=== PATIENT | female | born 1990 | race Caucasian/White ===

== ENCOUNTER 2016-07-18 14:20 | Emergency (ER) | payer BC, OTHER ==
[2016-07-18 15:03] VITALS: BP 110/66
--- NOTE | 2016-07-18 15:26 | UC ---
Respiratory Complaint HPI - HPI Summary HPI Summary: "Cough, my chest hurts. I'm achy." Headache, "brown" nasal discharge, PND, sore throat, "brown" productive cough, "my lungs ... chest hurts", nausea without vomiting, diarrhea, and myalgias for four days; worsened today. She states cough worse now than a few days ago. SHe does smoke but not today due to cough [ End ] - History of Current Complaint Chief Complaint: UCRespiratory Stated Complaint: COUGH,SORE THROAT Time Seen by Provider: 07/18/16 15:19 Hx Obtained From: Patient Hx Last Menstrual Period: 07/05/16 ?: No Onset/Duration: Gradual Onset Timing: Constant Severity Initially: Mild Severity Currently: Moderate Character: Cough: Productive Associated Signs And Symptoms: Positive: Wheezing, URI, Nasal Congestion, Hoarseness, Sinus Discomfort - Risk Factors Pulmonary Embolism Risk Factors: Negative Cardiac Risk Factors: Negative Pseudomonas Risk Factors: Negative Tuberculosis Risk Factors: Negative - Allergies/Home Medications Allergies/Adverse Reactions: Allergies Allergy/AdvReac Type Severity Reaction Status Date / Time Morphine Allergy Severe hallucinati Verified 07/18/16 14:59 ons Penicillins Allergy Intermediate rash Verified 07/18/16 14:59 Sulfamethoxazole Allergy Intermediate rash Verified 07/18/16 14:59 w/Trimethoprim [From Bactrim] Amoxicillin AdvReac See Comment Verified 07/18/16 14:59 PMH/Surg Hx/FS Hx/Imm Hx Previously Healthy: Yes Endocrine History Of: Denies: Diabetes, Thyroid Disease Cardiovascular History Of: Denies: Cardiac Disorders, Hypertension Respiratory History Of: Denies: COPD, Asthma GI/ History Of: Denies: Ulcer Cancer History Of: Denies: Lung Cancer - Surgical History Surgical History: Yes Surgery Procedure, Year, and Place: 2007 Appendectomy. 1997 T&A - Family History Known Family History: Positive: None - Social History Occupation: Employed Full-time Lives: Alone Alcohol Use: Rare Substance Use Type: None Smoking Status (MU): Former Smoker Type: Cigarettes Amount Used/How Often: 1/3 PPD Length of Time of Smoking/Using Tobacco: 4 years Have You Smoked in the Last Year: Yes When Did the Patient Quit Smoking/Using Tobacco: 07/17/16 Household Exposure Type: Cigarettes Cessation Counseling: Patient Advised to Stop Review of Systems Constitutional: Fatigue Skin: Negative Eyes: Negative ENT: Sore Throat, Ear Ache, Nasal Discharge Respiratory: Cough Cardiovascular: Negative Gastrointestinal: Negative Genitourinary: Negative Motor: Negative Neurovascular: Negative Musculoskeletal: Negative Neurological: Negative Psychological: Negative All Other Systems Reviewed And Are Negative: Yes Physical Exam Triage Information Reviewed: Yes Appearance: Well-Appearing, No Pain Distress, Well-Nourished Vital Signs: Initial Vital Signs Temp 98 F 07/18/16 14:57 Pulse 78 07/18/16 14:57 Resp 16 07/18/16 14:57 BP 110/66 07/18/16 14:57 Pulse Ox 100 07/18/16 14:57 Eye Exam: Normal ENT Exam: Normal Dental Exam: Normal Neck exam: Normal Neck: Positive: 1 Respiratory Exam: Normal Cardiovascular Exam: Normal Musculoskeletal Exam: Normal Neurological Exam: Normal Psychological Exam: Normal Skin Exam: Normal UC Diagnostic Evaluation - Laboratory O2 Sat by Pulse Oximetry: 100 Respiratory Course/Dx - Course Course Of Treatment: URI / Viral bronchitis is the diagnosis . 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 Take it with a meal and also take probiotics when and if you start the antibiotics. - Differential Dx/Diagnosis Differential Diagnosis/HQI/PQRI: Bronchitis, Laryngitis, Lower Resp Infection, Sinusitis Provider Diagnoses: Bronchitis Discharge - Discharge Plan Condition: Good Disposition: HOME Prescriptions: Azithromyxin LISETH (NF) [Z-Liseth (Zithromax) 250 mg tabs #6] 2 tab PO .TODAY, THEN 1 DAILY #6 tab Patient Education Materials: Upper Respiratory Infection (ED) Referrals: No Primary Care Phys,NOPCP [Primary Care Provider] - 3 Days (If your symptoms are not improved.) Additional Instructions: URI / Viral bronchitis is the diagnosis . 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 Take it with a meal and also take probiotics when and if you start the antibiotics.
== END 2016-07-18 15:47 | disposition home or self-care (01) ==
LOC: UCCORT 14:20
DX: J40 Bronchitis, not specified as acute or chronic (principal); Z88.5 Allergy status to narcotic agent; Z88.0 Allergy status to penicillin; Z88.2 Allergy status to sulfonamides; Z87.891 Personal history of nicotine dependence
CPT/HCPCS: 99212; G0463